=== PATIENT | male | born 1990 | race African-American/Black ===

== ENCOUNTER 2024-02-22 04:05 | Emergency (ER) | payer OTHER, SELFPAY ==
[2024-02-22 04:57] LABS: #Basophils 0.05 10x3/uL (0.0-0.2); #Eosinphils 0.25 10x3/uL (0.0-0.5); #Monocytes 0.47 10x3/uL (0.0-1.1); #Neutrophils 1.88 10x3/uL (1.5-8.4); %Eosinophils 5.2 % (0.0-6.0); %Lymphocytes 44.8 % (18.0-47.0); %Monocytes 9.8 % (0.0-10.0); Hemoglobin 14.7 g/dL (13.5-17.5); Mean Corpuscular HGB CONC 34.2 g/dL (32.0-36.0); Mean Corpuscular Hemoglobin 31.3 pg (27.0-33.0); Mean Corpuscular Volume 91.7 fL (81.2-95.1); Platelet Count 274 10x3/uL (150-450); RBC Distribution Width 12.3 % (11.5-14.5); Red Blood Cell (RBC) Count 4.69 10x6/uL (4.32-5.72); White Blood Cell (WBC) Count 4.8 10x3/uL (3.5-10.5)
[2024-02-22 05:08] LABS: Anion Gap 13 mmol/L (10-20); BUN (Urea Nitrogen) 7 mg/dL (8.9-20.6); Calc. Creatinine Clearance 0 mL/min (70-130); Calcium 9.4 mg/dL (7.8-10.44); Carbon Dioxide 29 mmol/L (22-29); Chloride 102 mmol/L (98-107); Estimated GFR 122; Glucose 102 mg/dL (70-105); Potassium 3.7 mmol/L (3.5-5.1); Sodium 140 mmol/L (136-145)
== END 2024-02-22 05:43 | disposition home or self-care (01) ==
LOC: CSHERS 04:05
DX: R11.2 Nausea with vomiting, unspecified (principal); R19.7 Diarrhea, unspecified; E86.0 Dehydration; F17.200 Nicotine dependence, unspecified, uncomplicated
CPT/HCPCS: 80048; 85025; 96360

== ENCOUNTER 2025-04-16 10:22 | Outpatient (CLI) | payer OTHER | END 2025-04-16 10:23 | disposition home or self-care (01) | LOC: CSHRAD 10:22 | PROVIDERS: ATTEND Nurse Practitioner Family | DX: M54.50 Low back pain, unspecified (principal); M41.9 Scoliosis, unspecified | CPT/HCPCS: 72100 ==